=== PATIENT | female | born 1955 | race Two or more races ===

== ENCOUNTER → 2025-04-22 | Outpatient (CLI) | payer MEDICARE, SELFPAY ==
[2025-04-23 14:28] LABS: Free T3 2.1 pg/mL (2.18-3.98)
[2025-04-26 17:08] LABS: Thyroid Peroxidase AB 123 IU/mL (0-34)
== END | disposition home or self-care (01) ==
PROVIDERS: Referring Provider Nurse Practitioner Family; Visit Provider Nurse Practitioner Family
DX: R51.9 Headache, unspecified (principal); E03.9 Hypothyroidism, unspecified; R63.4 Abnormal weight loss
CPT/HCPCS: 84432; 84439; 84443; 84481; 86376; 86800